=== PATIENT | male | born 1980 | race American Indian/Alaskan Native ===

== ENCOUNTER 2016-12-27 08:27 | Emergency (ER) | payer OTHER ==
[2016-12-27 09:27] LABS: Anion Gap 17 mmol/L; Blood Urea Nitrogen 14 mg/dL (9-20); Calcium 9.4 mg/dL (8.4-10.2); Carbon Dioxide 27 mmol/L (22-30); Chloride 93.7 mmol/L (98-107); Glucose 430 mg/dL (75-100); Potassium 4.2 mmol/L (3.6-5.0); Sodium 133 mmol/L (137-145)
[2016-12-27 09:32] LABS: Basophils % (Auto) 0.2 % (0.0-1.8); Eosinophils % (Auto) 1.6 % (0.0-4.3); Hematocrit 49.5 % (35.5-45.6); Hemoglobin 16.4 gm/dl (11.8-15.2); Mean Corpuscular HGB Conc 33 % (32-34); Mean Corpuscular Hemoglobin 29 pg (28-32); Mean Corpuscular Volume 88 fl (84-94); Platelet Count 301 K/mm3 (140-440); Red Cell Distribution Width 14.5 % (13.2-15.2); White Blood Count 14.4 K/mm3 (4.5-11.0)
[2016-12-27 09:56] LABS: Bilirubin,Urine NEG (Negative); Blood,Urine SM (Negative); Ketones,Urine NEG (Negative); Leukocyte Esterase,Urine NEG (Negative); Mucus,Urine FEW /HPF; Nitrite,Urine NEG (Negative); Protein,Urine <15 mg/dL mg/dL (Negative); Urobilinogen,Urine < 2.0 mg/dL (<2.0); WBC,Urine < 1.0 /HPF (0.0-6.0)
[2016-12-27] MEDS ORDERED: NACL 0.9% 1000 ML 1,000 ML IV ONE (10:28)
[2016-12-27] MEDS ORDERED: TORADOL IV ONE (10:28)
--- NOTE | 2016-12-27 10:33 | Emergency Department Report ---
HPI - General Chief Complaint: Hyperglycemia Time Seen by Provider: 12/27/16 09:14 - HPI HPI: This is a 36-year-old Afro-[place] male who drove himself in to be seen today with the complaints of elevated blood sugar and sciatic nerve pain. Patient says he has previous diagnosis history of sciatica and for the past 4 days he has been having pain to the right side of the low back radiating down the right leg and also feels like a band around his abdomen. He denies any problems with bowel or bladder, numbness or paresthesias or neurological deficits. The patient has non-insulin dependent diabetes and says he is compliant with his glyburide but says his blood sugar has been elevated. He checks his blood sugar and says it is been in the 300s and 400s lately. He goes to [facility] for his primary care needs. He took some ibuprofen for his sciatica pain without much relief. ED Past Medical Hx - Past Medical History Previous Medical History?: Yes Hx Diabetes: Yes Additional medical history: sciatica - Surgical History Past Surgical History?: No - Social History Smoking Status: Current Every Day Smoker Substance Use Type: Alcohol, Marijuana, Prescribed - Medications Home Medications: Home Medications Medication Instructions Recorded Confirmed Last Taken Type Diazepam Tab [Valium] 2 mg PO TID PRN #10 tablet 12/27/16 Unknown Rx Ibuprofen [Motrin 800 MG tab] 800 mg PO Q8HR PRN #20 tablet 12/27/16 Unknown Rx glyBURIDE [Glyburide] 2.5 mg PO DAILY 12/27/16 12/27/16 12/27/16 History ED Review of Systems ROS: Stated complaint: ELEVATED GLUCOSE/PAIN Other details as noted in HPI Comment: All other systems reviewed and negative Constitutional: denies: chills, fever Eyes: denies: eye pain, eye discharge, vision change ENT: denies: ear pain, throat pain Respiratory: denies: cough, shortness of breath, wheezing Cardiovascular: denies: chest pain, palpitations Gastrointestinal: denies: nausea, vomiting, diarrhea Genitourinary: denies: urgency, dysuria Musculoskeletal: back pain, myalgia Skin: denies: rash, lesions Neurological: denies: headache, weakness, numbness, paresthesias Physical Exam - Physical Exam Vital Signs: Vital Signs 12/27/16 12/27/16 08:46 09:57 Temperature 98.2 F Pulse Rate 94 H 92 H Respiratory 20 16 Rate Blood Pressure 135/93 Blood Pressure 126/85 [Right] O2 Sat by Pulse 100 98 Oximetry Physical Exam: GENERAL: The patient is well-developed well-nourished. HEENT: Normocephalic. Atraumatic. Extraocular motions are intact. Patient has moist mucous membranes. Pupils equal reactive to light bilaterally. NECK: Supple. Trachea is midline. CHEST/LUNGS: Clear to auscultation. There is no respiratory distress noted. HEART/CARDIOVASCULAR: Regular. There is no tachycardia. There is no gallop rub or murmur. ABDOMEN: Abdomen is soft, nontender. Patient has normal bowel sounds. There is no abdominal distention. SKIN: Skin is warm and dry. NEURO: The patient is awake, alert, and oriented. The patient is cooperative. The patient has no focal neurologic deficits. The patient has normal speech and gait. Cranial nerves II through XII grossly intact. MUSCULOSKELETAL: There is no tenderness or deformity. There is no limitation range of motion. There is no evidence of acute injury. Muscle strength 5 out of 5 upper and lower extremities including EHL bilaterally. Positive right lower extremity straight leg raise test reproducing and worsening symptoms. BACK: No midline thoracic or lumbar tenderness to palpation or deformity. There is some right-sided lumbar paraspinal tenderness to palpation. ED Course Vital Signs 12/27/16 12/27/16 08:46 09:57 Temperature 98.2 F Pulse Rate 94 H 92 H Respiratory 20 16 Rate Blood Pressure 135/93 Blood Pressure 126/85 [Right] O2 Sat by Pulse 100 98 Oximetry ED Medical Decision Making - Lab Data Result diagrams: 12/27/16 08:58 12/27/16 08:58 - Medical Decision Making 36-year-old male presents with hyperglycemia and back pain with sciatica. Patient's blood sugar is about 400 but he does not appear to have any signs of DKA or HHNK. There is no elevated anion gap. He was given one liter of IV fluid and IV insulin and upon reevaluation his blood sugar comes down to about 1 :30. Patient does not have any midline back pain, step-off or deformity. There is no focal, motor or sensory deficits and cranial nerves are intact. He does not have any problems with bowel or bladder, numbness or paresthesias or any neurological deficits. He does not appear to have any of the emergent back condition such as cauda equina, cord compression syndrome or epidural abscess. He has a history of sciatica and this appears consistent with that. He was given a dose of Toradol here for discomfort as he drove himself in to be seen. He was discharged home with some ibuprofen and low-dose Valium for muscle relaxation and encouraged to follow back up with [facility]. He will return to the ER with any worsening of symptoms or any acute distress. - Differential Diagnosis sciatica, DKA, HHNK, spasm, sprain Critical Care Time: No Critical care attestation.: If time is entered above; I have spent that time in minutes in the direct care of this critically ill patient, excluding procedure time. ED Disposition Clinical Impression: Uncontrolled diabetes mellitus Qualifiers: Diabetes mellitus type: type 2 Diabetes mellitus complication status: with hyperglycemia Diabetes mellitus bed bug exterminator insulin use: without bed bug exterminator use Qualified Code(s): E11.65 - Type 2 diabetes mellitus with hyperglycemia Sciatica Qualifiers: Laterality: right Qualified Code(s): M54.31 - Sciatica, right side Disposition: DISCHARGED TO HOME OR SELFCARE Is pt being admited?: No Condition: Stable Instructions: Sciatica (ED), Diabetic Hyperglycemia (ED) Additional Instructions: Please follow-up with a primary care doctor in the next few days. Return to the emergency department with any worsening of your symptoms or any acute distress. Try to stay away from foods that are high in sugar, carbohydrates and stretches to help with your diabetes. You've been prescribed a medication that is sedating. Therefore this medication cannot be mixed with alcohol, or taken prior to driving, working, or being responsible for children. Prescriptions: Diazepam Tab [Valium] 2 mg PO TID PRN #10 tablet PRN Reason: Muscle Spasm Ibuprofen [Motrin 800 MG tab] 800 mg PO Q8HR PRN #20 tablet PRN Reason: Pain Referrals: PRIMARY CARE,MD [Primary Care Provider] - 3-5 Days [facility] [Outside] - 3-5 Days Time of Disposition: 11:54
[2016-12-27 12:01] VITALS: BP 128/82
--- NOTE | 2016-12-27 18:59 | Emergency Department Report ---
Entered by BENEDICTO YOUNGER, acting as scribe for EL CHOU PA. Chief Complaint: Hyperglycemia Stated Complaint: ELEVATED GLUCOSE/PAIN Time Seen by Provider: 12/27/16 09:14 - HPI History of Present Illness: Patient presents to the ED c/o of hyperglycemia for and sciatica that radiates from right lower back to right leg for 4 days. Reports diarrhea. Denies nausea, vomiting, fever, and chills. - ROS Review of Systems: All system are negative unless stated in HPI above. - Exam Vital Signs: Vital Signs 12/27/16 08:46 Temperature 98.2 F Pulse Rate 94 H Respiratory 20 Rate Blood Pressure 135/93 O2 Sat by Pulse 100 Oximetry Physical Exam: General: well nourished, well deverloped, nontoxic in appearance, in no acute distress Back: no vertebral tenderness, normal gait, no paraspinal tenderness. Cardiovascular: Normal S1/S2 heart sounds MSE screening note: Focused history and physical exam performed. Due to findings the following was ordered: ED Medical Decision Making - Lab Data Result diagrams: 12/27/16 08:58 12/27/16 08:58 - Medical Decision Making Medical decision making: Patient seen by provider in triage area. Appropriate protocol activated and patient to main ED to be seen by physician. ED Disposition for MSE Clinical Impression: Uncontrolled diabetes mellitus, Sciatica Disposition: DISCHARGED TO HOME OR SELFCARE Condition: Stable Instructions: Sciatica (ED), Diabetic Hyperglycemia (ED) Additional Instructions: Please follow-up with a primary care doctor in the next few days. Return to the emergency department with any worsening of your symptoms or any acute distress. Try to stay away from foods that are high in sugar, carbohydrates and stretches to help with your diabetes. You've been prescribed a medication that is sedating. Therefore this medication cannot be mixed with alcohol, or taken prior to driving, working, or being responsible for children. Prescriptions: Diazepam Tab [Valium] 2 mg PO TID PRN #10 tablet PRN Reason: Muscle Spasm Ibuprofen [Motrin 800 MG tab] 800 mg PO Q8HR PRN #20 tablet PRN Reason: Pain Referrals: [facility] [Outside] - 3-5 Days PRIMARY CARE,MD [Primary Care Provider] - 3-5 Days This documentation as recorded by the scribe,BENEDICTO YOUNGER,accurately reflects the service I personally performed and the decisions made by me,EL CHOU PA.
[2016-12-31 23:33] LABS: B-Hydroxybutyrate 0.2 mmol/L (0.2 - 0.28)
== END 2016-12-27 12:01 | disposition home or self-care (01) ==
LOC: ED 08:27
DX: E11.65 Type 2 diabetes mellitus with hyperglycemia (principal); M54.31 Sciatica, right side; F17.200 Nicotine dependence, unspecified, uncomplicated; F12.90 Cannabis use, unspecified, uncomplicated
CPT/HCPCS: 36415; 80048; 81001; 82010; 82805; 82962; 85025; 96361; 96374; 96375; 99284; J1885; J7030; J1815

== ENCOUNTER 2017-06-21 09:06 | Emergency (ER) | payer SELFPAY ==
[2017-06-21 09:16] VITALS: BP 155/93
== END 2017-06-21 10:37 | disposition left against medical advice (07) ==
LOC: ED 09:06
DX: Z53.21 Procedure and treatment not carried out due to patient leaving prior to being seen by health care provider (principal)

== ENCOUNTER 2017-09-09 05:19 | Emergency (ER) | payer OTHER ==
[2017-09-09 05:47] VITALS: BP 122/85
[2017-09-09 07:23] LABS: Basophils % (Auto) 0.3 % (0.0-1.8); Eosinophils # (Auto) 0.1 K/mm3 (0.0-0.4); Eosinophils % (Auto) 1.4 % (0.0-4.3); Hematocrit 48.8 % (35.5-45.6); Hemoglobin 16.6 gm/dl (11.8-15.2); Lymphocytes # (Auto) 3.7 K/mm3 (1.2-5.4); Lymphocytes % (Auto) 33.7 % (13.4-35.0); Mean Corpuscular HGB Conc 34 % (32-34); Mean Corpuscular Hemoglobin 30 pg (28-32); Mean Corpuscular Volume 87 fl (84-94); Monocytes # (Auto) 0.7 K/mm3 (0.0-0.8); Monocytes % (Auto) 6.5 % (0.0-7.3); Platelet Count 272 K/mm3 (140-440); Red Blood Count 5.63 M/mm3 (3.65-5.03); Red Cell Distribution Width 14.4 % (13.2-15.2)
[2017-09-09 07:40] LABS: Alanine Aminotransferase 17 units/L (7-56); Albumin 4.6 g/dL (3.9-5); BUN/Creatinine Ratio 21; Blood Urea Nitrogen 17 mg/dL (9-20); Calcium 9.8 mg/dL (8.4-10.2); Hemolysis Index 14
[2017-09-09 07:53] LABS: Bilirubin,Urine NEG (Negative); Blood,Urine NEG (Negative); Color,Urine Straw (Yellow); Nitrite,Urine NEG (Negative); Protein,Urine <15 mg/dL mg/dL (Negative); Urobilinogen,Urine < 2.0 mg/dL (<2.0)
[2017-09-09 07:56] LABS: WBC,Urine < 1.0 /HPF (0.0-6.0)
== END 2017-09-09 06:00 | disposition left against medical advice (07) ==
LOC: ED 05:19
DX: M54.9 Dorsalgia, unspecified (principal); Z53.21 Procedure and treatment not carried out due to patient leaving prior to being seen by health care provider
CPT/HCPCS: 36415; 80053; 81001; 85025

== ENCOUNTER 2018-11-11 19:45 | Emergency (ER) | payer OTHER ==
[2018-11-11 19:52] VITALS: BP 152/94
[2018-11-11] MEDS ORDERED: FLEXERIL PO ONE (23:11)
[2018-11-11] MEDS ORDERED: TORADOL IM ONE (23:11)
--- NOTE | 2018-11-11 23:30 | Emergency Department Report ---
ED Back Pain/Injury HPI - General Chief Complaint: Back Pain/Injury Stated Complaint: BACK HURT Time Seen by Provider: 11/11/18 22:33 Source: patient Limitations: No Limitations - History of Present Illness Initial Comments: Patient is a 37-year-old -[place] male with history of chronic low back pain who presents for acute on chronic low back pain since yesterday states he slipped and fell in the yard yesterday no LOC is no numbness no tingling or paralysis no decrease or loss of bowel or bladder function patient is ambulatory with steady gait at this time there is no fever or chills, 510 back pain is exacerbated by bending twisting reaching pain is relieved by off loading and rest . MD Complaint: back pain, fall Onset/Timin -: days(s) Similar Symptoms Previously: Yes Place: home Radiation: none Severity: mild, moderate Severity scale (0 -10): 2 Quality: aching Improves With: none Worsens With: none Context: while lifting, bending Associated Symptoms: denies: numbness, difficulty urinating, incontinence, fever/chills - Related Data Home Medications Medication Instructions Recorded Confirmed Last Taken glyBURIDE [Glyburide] 2.5 mg PO DAILY 12/27/16 12/27/16 12/27/16 Previous Rx's Medication Instructions Recorded Last Taken Type Ibuprofen [Motrin 800 MG tab] 800 mg PO Q8HR PRN #20 tablet 12/27/16 Unknown Rx diazePAM TAB [Valium] 2 mg PO TID PRN #10 tablet 12/27/16 Unknown Rx Cyclobenzaprine [Flexeril] 10 mg PO TID PRN #30 tablet 11/11/18 Unknown Rx Menthol/Camphor [[place] 1 applicatio TP QID PRN #1 tube 11/11/18 Unknown Rx Ointment] Naproxen 500 mg PO BID PRN #30 tablet 11/11/18 Unknown Rx Allergies Allergy/AdvReac Type Severity Reaction Status Date / Time No Known Allergies Allergy Verified 05/31/15 12:28 ED Review of Systems ROS: Stated complaint: BACK HURT Other details as noted in HPI Constitutional: denies: chills, fever Eyes: denies: eye pain, eye discharge, vision change ENT: denies: ear pain, throat pain Respiratory: denies: cough, shortness of breath, wheezing Cardiovascular: denies: chest pain, palpitations Endocrine: no symptoms reported Gastrointestinal: denies: abdominal pain, nausea, diarrhea Genitourinary: denies: urgency, dysuria Musculoskeletal: as per HPI Skin: denies: rash, lesions Neurological: denies: headache, weakness, paresthesias Psychiatric: denies: anxiety, depression Hematological/Lymphatic: denies: easy bleeding, easy bruising ED Past Medical Hx - Past Medical History Hx Diabetes: Yes Additional medical history: sciatica - Social History Smoking Status: Never Smoker Substance Use Type: None - Medications Home Medications: Home Medications Medication Instructions Recorded Confirmed Last Taken Type Ibuprofen [Motrin 800 MG tab] 800 mg PO Q8HR PRN #20 tablet 12/27/16 Unknown Rx diazePAM TAB [Valium] 2 mg PO TID PRN #10 tablet 12/27/16 Unknown Rx glyBURIDE [Glyburide] 2.5 mg PO DAILY 12/27/16 12/27/16 12/27/16 History Cyclobenzaprine [Flexeril] 10 mg PO TID PRN #30 tablet 11/11/18 Unknown Rx Menthol/Camphor [[place] 1 applicatio TP QID PRN #1 tube 11/11/18 Unknown Rx Ointment] Naproxen 500 mg PO BID PRN #30 tablet 11/11/18 Unknown Rx ED Physical Exam - General Limitations: No Limitations General appearance: alert, in no apparent distress - Head Head exam: Present: normocephalic - Eye Eye exam: Present: normal appearance, PERRL, EOMI Pupils: Present: normal accommodation - ENT ENT exam: Present: normal orophraynx, mucous membranes moist, TM's normal bilaterally, normal external ear exam - Neck Neck exam: Present: normal inspection, full ROM. Absent: tenderness, meningismus, lymphadenopathy, thyromegaly - Respiratory Respiratory exam: Present: normal lung sounds bilaterally, rhonchi, chest wall tenderness. Absent: respiratory distress, wheezes - Cardiovascular Cardiovascular Exam: Present: regular rate, normal rhythm, normal heart sounds. Absent: systolic murmur, diastolic murmur, rubs, gallop - GI/Abdominal GI/Abdominal exam: Present: soft, normal bowel sounds. Absent: distended, tenderness, guarding, rebound, rigid, bruit, hernia - Rectal Rectal exam: Present: deferred - exam: Present: normal inspection, testicular tenderness External exam: Present: normal external exam, erythema, swelling - Extremities Exam Extremities exam: Present: normal capillary refill, calf tenderness - Back Exam Back exam: Present: full ROM, tenderness, muscle spasm, paraspinal tenderness. Absent: CVA tenderness (R), CVA tenderness (L), vertebral tenderness, rash noted - Expanded Back Exam Expanded Back exam: Present: intact bulbocavernosus reflex. Absent: saddle anesthesia, normal rectal tone Back exam: Sciatic Notch Tenderness: Left, Positive Straight Leg Raise: Left, Negative Straight Leg Raising: Left - Neurological Exam Neurological exam: Present: alert, oriented X3, CN II-XII intact, normal gait, reflexes normal - Psychiatric Psychiatric exam: Present: normal affect, normal mood - Skin Skin exam: Present: warm, dry, intact, normal color, rash, ecchymosis ED Course Vital Signs 11/11/18 19:50 Temperature 98.1 F Pulse Rate 84 Respiratory 18 Rate Blood Pressure 152/94 O2 Sat by Pulse 100 Oximetry ED Medical Decision Making - Medical Decision Making pain improved there is no fever or chills no h/v no hematuria frequency or urgency, this is a low back strain plan: naproxen flexeril tiger balm follow up with pcp in 2-3 days , pt verbalized agreement and understanding of discharge plan Critical care attestation.: If time is entered above; I have spent that time in minutes in the direct care of this critically ill patient, excluding procedure time. ED Disposition Clinical Impression: Low back strain Qualifiers: Encounter type: initial encounter Qualified Code(s): S39.012A - Strain of muscle, fascia and tendon of lower back, initial encounter Disposition: TO HOME OR SELFCARE Is pt being admited?: No Does the pt Need Aspirin: No Condition: Stable Instructions: Muscle Strain (ED), Low Back Strain (ED), Core Strengthening Exercises (GEN) Prescriptions: Cyclobenzaprine [Flexeril] 10 mg PO TID PRN #30 tablet PRN Reason: Muscle Spasm Naproxen 500 mg PO BID PRN #30 tablet PRN Reason: pain Menthol/Camphor [[place] Ointment] 1 applicatio TP QID PRN #1 tube PRN Reason: pain Referrals: PRIMARY CARE, [Primary Care Provider] - 3-5 Days Forms: Work/School Release Form(ED) Time of Disposition: 23:37
== END 2018-11-11 23:54 | disposition home or self-care (01) ==
LOC: ED 19:45
DX: S39.012A Strain of muscle, fascia and tendon of lower back, initial encounter (principal); E11.9 Type 2 diabetes mellitus without complications; W01.198A Fall on same level from slipping, tripping and stumbling with subsequent striking against other object, initial encounter; Y93.89 Activity, other specified; Y92.098 Other place in other non-institutional residence as the place of occurrence of the external cause; Y99.8 Other external cause status
CPT/HCPCS: 96372; 99282; J1885

== ENCOUNTER 2019-08-21 15:33 | Emergency (ER) | payer SELFPAY | END 2019-08-21 17:21 | disposition left against medical advice (07) | LOC: ED 15:33 | DX: R73.9 Hyperglycemia, unspecified (principal); Z53.21 Procedure and treatment not carried out due to patient leaving prior to being seen by health care provider | CPT/HCPCS: 82962 ==

== ENCOUNTER 2019-10-24 08:36 | Outpatient (CLI) | payer MEDICAID ==
[2019-10-24 09:17] LABS: Blood Urea Nitrogen 10 mg/dL (9-20)
--- NOTE | 2019-10-24 11:12 | Cat Scan Report ---
CT ABDOMEN AND PELVIS WITH CONTRAST INDICATION / CLINICAL INFORMATION: K59.1Functional diarrhea. TECHNIQUE: Axial CT images were obtained through the abdomen and pelvis after IV contrast. All CT scans at this location are performed using CT dose reduction for ALARA by means of automated exposure control. COMPARISON: None available. FINDINGS: LOWER CHEST: No significant abnormality. LIVER: No significant abnormality. GALLBLADDER: No significant abnormality. BILE DUCTS: No significant abnormality. PANCREAS: No significant abnormality. SPLEEN: No significant abnormality. ADRENALS: No significant abnormality. RIGHT KIDNEY and URETER: No significant abnormality. LEFT KIDNEY and URETER: No significant abnormality. STOMACH and SMALL BOWEL: No significant abnormality. COLON: No significant abnormality. APPENDIX: No significant abnormality. PERITONEUM: No free fluid. No free air. No fluid collection. LYMPH NODES: No significant adenopathy. AORTA and ARTERIES: Atherosclerotic plaques present distal abdominal aorta and iliac arteries IVC and VEINS: No significant abnormality. URINARY BLADDER: No significant abnormality. REPRODUCTIVE ORGANS: No significant abnormality. ADDITIONAL FINDINGS: None. SKELETAL SYSTEM: No significant abnormality. IMPRESSION: 1. No significant abnormality. Signer Name: Armando De León MD Signed: 10/24/2019 11:07 AM Workstation Name: [id number]
== END 2019-10-24 08:37 | disposition home or self-care (01) ==
LOC: CT 08:36
PROVIDERS: ATTEND Student in an Organized Health Care Education/Training Program
DX: I70.0 Atherosclerosis of aorta (principal); K59.1 Functional diarrhea; R10.9 Unspecified abdominal pain
CPT/HCPCS: 36415; 74177; 82565; 84520; Q9967